=== PATIENT | female | born 1965 | race Hispanic/Latino ===

== ENCOUNTER 2016-10-30 13:12 | Emergency (ER) | payer SELFPAY ==
[2016-10-30 13:50] LABS: Bilirubin Negative (Negative); Blood, Urine Negative (Negative); Glucose, Urine (Dipstick) 500 mg/dL (Negative); Leukocyte Small (Negative); Nitrite Negative (Negative); Protein, Urine (Dipstick) Negative (Neg-Trace); pH, Urine 6.5 (5.0-9.0)
[2016-10-30 13:51] LABS: Clarity Hazy (Clear)
[2016-10-30 13:59] LABS: Bacteria/HPF 2+ HPF (None Seen); RBC/HPF None Seen HPF (0-3)
[2016-10-30] MEDS ORDERED: Sodium Chloride 0.9% 1,000 ML ONE (14:00)
[2016-10-30] MEDS ORDERED: Ondansetron HCl/PF 4 MG/2 ML Vial ONE (14:00)
[2016-10-30 14:04] LABS: #Basophils 0.1 thou/uL (0.0-0.2); #Eosinphils 0.1 thou/uL (0.0-0.7); #Lymphocytes 2.2 thou/uL (1.20-3.40); #Monocytes 0.4 thou/uL (0.11-0.59); #Neutrophils 3.1 thou/uL (1.40-6.50); %Eosinophils 2.2 % (0.0-10.0); %Lymphocytes 37.1 % (21.0-51.0); %Monocytes 7.6 % (0.0-10.0); %Neutrophils 52.2 % (42.0-75.0); Hemoglobin 13.6 g/dL (12.0-16.0); Mean Corpuscular Hemoglobin 29.9 pg (27.0-31.0); Mean Corpuscular Volume 90.4 fl (81.0-99.0); Mean Platelet Volume 10.9 fL (7.4-10.4); Platelet Count 174 thou/uL (130-400); RBC Distribution Width 11.6 % (11.5-14.5); Red Blood Cell (RBC) Count 4.55 mill/uL (4.20-5.40); White Blood Cell (WBC) Count 5.8 thou/uL (4.8-10.8)
--- NOTE | 2016-10-30 14:17 | CT ---
NONCONTRAST CT OF THE ABDOMEN AND PELVIS INDICATIONS: Left-sided flank pain for several days that radiates into the left lower quadrant. The patient is a lso having vomiting. FINDINGS: The lung bases are clear. The unopacified liver, spleen, pancreas, and adrenal glands are normal ap pearing. There are mild vascular calcifications noted involving the abdominal aorta. No definite renal or ureteral calculus is evident. There are numerous scattered phleboliths within the lower pelvis. The rectum and perirectal soft tissues are unremarkable. There is a mild amount of retained stool within the colon. There is a normal appendix in the right lower quadrant. No drainable fluid collection is evident. There are scattered degenerative and ost eoarthritic changes. IMPRESSION: 1. No renal or ureteral calculus is evident. 2. No CT explanation for the patient's left-sided flank pain and abdominal pain. POS: [facility]
[2016-10-30 14:21] LABS: ALT (SGPT) 41 U/L (0-55); AST (SGOT) 30 U/L (5-34); Albumin 3.9 g/dL (3.5-5.0); Alkaline Phosphatase 109 U/L (40-150); Anion Gap 13 mmol/L (10-20); BUN (Urea Nitrogen) 8 mg/dL (7.0-18.7); Bilirubin, Total 0.4 mg/dL (0.2-1.2); Calc. Creatinine Clearance 0 mL/min (70-130); Calcium 8.7 mg/dL (7.8-10.44); Carbon Dioxide 27 mmol/L (22-29); Chloride 101 mmol/L (98-107); Estimated GFR-MDRD 74; Globulin 2.8 g/dL (2.4-3.5); Glucose 451 mg/dL (70-105); Potassium 4.2 mmol/L (3.5-5.1); Protein, Total 6.7 g/dL (6.0-8.3); Sodium 137 mmol/L (136-145)
[2016-10-30] MEDS ORDERED: Insulin Regular 300 UNITS/3 ML VIAL ONE (14:31)
== END 2016-10-30 16:15 | disposition home or self-care (01) ==
LOC: NAV ERS 13:12
DX: N10 Acute pyelonephritis (principal); E11.65 Type 2 diabetes mellitus with hyperglycemia; E78.5 Hyperlipidemia, unspecified; E78.00 Pure hypercholesterolemia, unspecified; Z79.84 Long term (current) use of oral hypoglycemic drugs; Z79.899 Other long term (current) drug therapy
CPT/HCPCS: 36416; 74176; 80053; 81003; 81015; 85025; 87086; 96361; 96374; 96375; J1815; J2270; J2405; J7050

== ENCOUNTER 2018-04-25 11:02 | Outpatient (CLI) | payer OTHER ==
--- NOTE | 2018-04-25 15:19 | ULT ---
ABDOMINAL ULTRASOUND: Date: 04/25/18 HISTORY: Abdominal pain, predominantly right-sided. FINDINGS: Real-time imaging of the upper abdomen demonstrates a normal appearing gallbladder. The common duct i s 5.0 mm. Technologist reports a negative ultrasound Wilson's sign. Liver parenchyma appears of incre ased echogenicity, it measures 14.0 cm in length. The spleen measures 10.0 cm. Right and left kidneys are normal in size and not obstruction. Pancreas is obscured. Abdominal aorta and IV regions appear unremarkable. Portions of the abdominal aorta are minimally obscured, but no an eurysm seen. IMPRESSION: Suggestion of some fatty changes of the liver. POS: [facility]
== END 2018-04-25 11:03 | disposition home or self-care (01) ==
LOC: NAV ULT 11:02
PROVIDERS: ATTEND Nurse Practitioner Family
DX: R10.11 Right upper quadrant pain (principal)
CPT/HCPCS: 76700